=== PATIENT | female | born 1960 | race Caucasian/White ===

== ENCOUNTER 2021-03-21 17:42 | Emergency (ER) | payer OTHER ==
[~2021-03-21] VITALS: Ht 165.1 cm; Wt 71.7 kg
[2021-03-21] MEDS ORDERED: BACTRIM DS TAB1 EACH (18:07)
[2021-03-21] MEDS ORDERED: MELOXICAM7.5 MG (18:07)
== END 2021-03-21 21:31 | disposition home or self-care (01) ==
LOC: ER 17:42
DX: R10.31 Right lower quadrant pain (principal); B34.9 Viral infection, unspecified; R50.9 Fever, unspecified